=== PATIENT | male | born 1955 ===

== ENCOUNTER 2017-07-23 09:29 | Emergency (ER) | payer OTHER ==
[2017-07-23 09:56] VITALS: BP 139/79; PULSE 88; RESP 16; TEMP 98; O2SAT 98
--- NOTE | 2017-07-23 10:56 | ED PDOC ---
Arrival/HPI - General Time Seen by Provider: 07/23/17 10:24 - History of Present Illness Narrative History of Present Illness (Text): 07/23/17 10:51 Pt is a 61 yo M who presents for bilateral low back pain s/p fall outside yesterday. Reports that he tripped on cement and fell with both arms outstretched, landing on all fours. Denies any arm or shoulder pain but feels he hurt his back in the process. Denies cp, sob, LOC, head trauma, recent illness or altered sensation. H/o tibial fracture with a metal yamini and screws that have not given him any trouble over the years. (Helen Mo) Past Medical History - Infectious Disease Hx of Infectious Diseases: None - Psychiatric Hx Substance Use: No - Surgical History Other/Comment: R leg SX with yamini and screw placement. - Anesthesia Hx Anesthesia: Yes Hx Anesthesia Reactions: No Family/Social History - Physician Review Nursing Documentation Reviewed: Yes Family/Social History: Unknown Family HX Smoking Status: Heavy Smoker > 10 Cigarettes Daily Hx Alcohol Use: No Hx Substance Use: No Allergies/Home Meds Allergies/Adverse Reactions: Allergies No Known Allergies Allergy (Verified 07/23/17 09:46) Review of Systems - Physician Review All systems were reviewed & negative as marked: Yes - Review of Systems Constitutional: Normal Eyes: Normal ENT: Normal Respiratory: Normal Cardiovascular: Normal Gastrointestinal: Normal Genitourinary Male: Normal Musculoskeletal: Back Pain (L-spine) Skin: Normal Neurological: Normal Endocrine: Normal Hemo/Lymphatic: Normal Psychiatric: Normal Physical Exam Vital Signs Reviewed: Yes Temperature: Afebrile Blood Pressure: Normal Pulse: Regular Respiratory Rate: Normal Appearance: Positive for: Well-Appearing, Non-Toxic, Comfortable Pain Distress: None Mental Status: Positive for: Alert and Oriented X 3 - Systems Exam Head: Present: Atraumatic, Normocephalic Pupils: Present: PERRL Extroacular Muscles: Present: EOMI Conjunctiva: Present: Normal Mouth: Present: Moist Mucous Membranes Neck: Present: Normal Range of Motion Respiratory/Chest: Present: Clear to Auscultation, Good Air Exchange. No: Respiratory Distress, Accessory Muscle Use Cardiovascular: Present: Regular Rate and Rhythm, Normal S1, S2. No: Murmurs Abdomen: Present: Normal Bowel Sounds. No: Tenderness, Distention, Peritoneal Signs Back: Present: Normal Inspection, Paraspinal Tenderness (bilateral tenderness L spine; ), Other (Neg SLR) Upper Extremity: Present: Normal Inspection. No: Cyanosis, Edema Lower Extremity: Present: Normal Inspection. No: Edema Neurological: Present: GCS=15, CN II-XII Intact, Speech Normal, Motor Func Grossly Intact (5/5 bilateral x 4, SILT x 4 extremities), Normal Sensory Function, Gait Normal, Normal 2Pt Descrimination Skin: Present: Warm, Dry, Normal Color. No: Rashes Psychiatric: Present: Alert, Oriented x 3, Normal Insight, Normal Concentration Vital Signs Temp Pulse Resp BP Pulse Ox 07/23/17 09:55 98.0 F 88 16 139/79 98 Medical Decision Making ED Course and Treatment: 07/23/17 10:57 Impression Pt is a 61 yo M who presents for bilateral low back pain s/p fall outside yesterday. Plan LS XR to r/o fx or dislocation assess and dispo Progress Note ibuprofen, flexeril and note for work lumbar spine XR indicates not fx or dislocation but does not r/o soft tissue Advised pt to see PMD for f/u (Helen Mo) - RAD Interpretation Radiology Orders: 07/23/17 10:49 LS SPINE AP/LAT [RAD] Stat Disposition/Present on Arrival - Present on Arrival Any Indicators Present on Arrival: Yes History of DVT/PE: No History of Uncontrolled Diabetes: No Urinary Catheter: No History of Decub. Ulcer: No History Surgical Site Infection Following: None - Disposition Have Diagnosis and Disposition been Completed?: Yes Disposition Time: 11:25 (07/23/17) Patient Plan: Discharge - Disposition Diagnosis: Muscle strain, Low back pain Disposition: HOME/ ROUTINE Condition: GOOD Discharge Instructions (ExitCare): Muscle Strain (ED), Acute Low Back Pain (ED) Additional Instructions: We recommend that you follow up with your primary doctor if you continue to have back pain. Please ensure that you have a meal before taking the ibuprofen and take the Flexeril at bedtime as it may make you sleepy All the best in your recovery Prescriptions: Cyclobenzaprine [Cyclobenzaprine HCl] 10 mg PO DAILY #5 tab Ibuprofen [Motrin Tab] 600 mg PO Q6 PRN 5 Days #20 tab PRN Reason: pain/fever Referrals: PCP,NO [Primary Care Provider] - Follow up with primary Forms: [employer] Connect (Gu[place]ian), WORK NOTE
--- NOTE | 2017-07-23 12:01 | RAD ---
PROCEDURE: Radiographs of the Lumbar Spine. HISTORY: Injury COMPARISON: No prior. FINDINGS: BONES: There is normal alignment of the lumbar vertebral bodies. There is straightening of the lumbar spine with loss of normal lumbar lordosis. There is no acute fracture or spondylolisthesis. Bone mineralization is normal. DISC SPACES: There is multilevel degenerative disc disease with anterior osteophytes, reduced disc heights and multilevel facet arthropathy, worse at L5-S1. OTHER FINDINGS: The sacroiliac joints are normal. No pathologic soft tissue calcifications with IMPRESSION: No acute fracture, spondylolysis or spondylolisthesis. Multilevel degenerative disc disease, worse at L5-S1.
== END 2017-07-23 12:48 | disposition home or self-care (01) ==
LOC: ED 09:29
DX: S39.012A Strain of muscle, fascia and tendon of lower back, initial encounter (principal); W01.0XXA Fall on same level from slipping, tripping and stumbling without subsequent striking against object, initial encounter; Y92.89 Other specified places as the place of occurrence of the external cause